=== PATIENT | male | born 1975 | race American Indian/Alaskan Native ===

== ENCOUNTER 2017-12-24 10:52 | Outpatient (CLI) | payer OTHER ==
--- NOTE | 2017-12-24 23:17 | XRay Report ---
FINAL REPORT EXAM: XR FOOT BILAT 3+V HISTORY: FOOT PAIN TECHNIQUE: Three views of the bilateral feet were performed Comparison: None FINDINGS: Mild diffuse osteopenia for the patient's age. No radiopaque foreign body or soft tissue gas. There are large bilateral accessory ossicles to the talus. Left foot: There is an erosion of the 1st metatarsal tuft at the IP joint. There is no fracture or dislocation. There is mild soft tissue prominence over the dorsal midfoot. There are cystic changes in the navicular and medial cuneiform incompletely assessed. There is a cystic focus measuring 3 millimeters in the distal aspect of the 1st toe proximal phalanx. Right foot: There is marked hallux valgus deformity of the right great toe. 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 The surgical margins are sharp. There is periosteal reaction along the 4th metatarsal shaft incompletely imaged. There is erosion of the 4th metatarsal head both medially and laterally and osteopenia of the 5th metatarsal head diffusely. There is mild diffuse right foot soft tissue swelling. There are somewhat obscured cystic changes of the right great toe/metatarsal head. There are calcifications of the soft tissues between the 2nd and 3rd metatarsal shafts. There is mild cortical reaction of the 3rd metatarsal shaft. IMPRESSION: Left foot: Cystic changes in the navicular and medial cuneiform incompletely assessed. There is a cystic focus measuring 3 millimeters in the distal aspect of the 1st toe proximal phalanx. 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 Cortical reaction right 3rd and 4th metatarsal shafts. Diffuse soft tissue swelling right foot. Erosion of the right 4th metatarsal head and 5th metatarsal head. No acute fractures. Constellation findings slightly atypical for gout, more suggestive of diabetes/cellulitis. If there is a clinical concern for acute osteomyelitis, recommend MRI without and with gadolinium.
== END 2017-12-24 10:53 | disposition home or self-care (01) ==
LOC: XRAY 10:52
PROVIDERS: ATTEND Podiatrist Public Medicine
DX: M85.871 Other specified disorders of bone density and structure, right ankle and foot (principal); M94.8X8 Other specified disorders of cartilage, other site; Z89.421 Acquired absence of other right toe(s)